=== PATIENT | male | born 1975 | race Caucasian/White ===

== ENCOUNTER 2018-03-23 13:38 | Emergency (ER) | payer MEDICARE, SELFPAY ==
[2018-03-23 13:38] VITALS: BP 153/103; PULSE 122; RESP 18; TEMP 36.6; O2SAT 100; BMI 22.0
[2018-03-23 14:40] VITALS: BP 147/99; PULSE 92; RESP 18; O2SAT 100
--- NOTE | 2018-03-23 14:46 | ED.VISSUMM ---
- ER Visit Summary Date of Service: 03/23/18 Chief Complaint: Right wrist and hand weakness History of Present Illness: The patient is a [address] of heroin and methamphetamine abuse. Patient states a month ago he fell asleep at a kitchen table. His wrist was caught awkwardly. Initially he had decreased sensation and tingling to his right forearm that has since improved over the last 4 weeks. 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 He is right-hand dominant. He has not been evaluated for this as of yet. Recently was incarcerated. Physical Examination: Middle-aged male vital signs are stable afebrile. No distress. H EENT exam unremarkable. No facial droop. Normal speech. No signs of trauma. Neck nontender. No lymphadenopathy. Lungs clear to auscultation bilaterally. Heart regular rhythm no murmur. Chest nontender. Abdomen soft nontender. Normal bowel sounds no peritoneal signs. Extremities left upper and both lower extremities are neurovascular intact. Full range of motion. Normal motor strength and sensation. His right shoulder and elbow have normal motor strength. His forearm has normal sensation. He is a strong right radial pulse. 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 His exam is consistent with a radial nerve palsy. He has a strong radial pulse. And cap refill. Test Results: None Emergency Department Course and Treatment: A radial nerve palsy. Treatment Plan: Velcro wrist splint.. Follow-up with primary care physician for further evaluation and possible physical therapy. Disposition: Discharge Impression: Acute right and radial nerve palsy History of methamphetamine and heroin abuse This note was generated with Zen99 dictation software. It may contain incorrect words, spelling, and punctuation that were not noted in review of the chart prior to signing ED Disposition - Plan for ED Patient: Chief Complaint: Upper Extremity Injury Referrals: Richard Centeno DO [Primary Care Provider] -
--- NOTE | 2018-03-23 14:49 | ED.DCSUM_ITS ---
- ER Visit Summary Date of Service: 03/23/18 Chief Complaint: Right wrist and hand weakness History of Present Illness: The patient is a [address] of heroin and methamphetamine abuse. Patient states a month ago he fell asleep at a kitchen table. His wrist was caught awkwardly. Initially he had decreased sensation and tingling to his right forearm that has since improved over the last 4 weeks. 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 He is right-hand dominant. He has not been evaluated for this as of yet. Recently was incarcerated. Physical Examination: Middle-aged male vital signs are stable afebrile. No distress. H EENT exam unremarkable. No facial droop. Normal speech. No signs of trauma. Neck nontender. No lymphadenopathy. Lungs clear to auscultation bilaterally. Heart regular rhythm no murmur. Chest nontender. Abdomen soft nontender. Normal bowel sounds no peritoneal signs. Extremities left upper and both lower extremities are neurovascular intact. Full range of motion. Normal motor strength and sensation. His right shoulder and elbow have normal motor strength. His forearm has normal sensation. He is a strong right radial pulse. 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 His exam is consistent with a radial nerve palsy. He has a strong radial pulse. And cap refill. Test Results: None Emergency Department Course and Treatment: A radial nerve palsy. Treatment Plan: Velcro wrist splint.. Follow-up with primary care physician for further evaluation and possible physical therapy. Disposition: Discharge Impression: Acute right and radial nerve palsy History of methamphetamine and heroin abuse This note was generated with Add[employer] dictation software. It may contain incorrect words, spelling, and punctuation that were not noted in review of the chart prior to signing ED Disposition - Plan for ED Patient: Chief Complaint: Upper Extremity Injury Referrals: Richard Centeno DO [Primary Care Provider] -
--- NOTE | 2018-03-23 14:49 | ED.DEP ---
ED Disposition - Plan for ED Patient: Disposition: Home or Assisted Living Chief Complaint: Upper Extremity Injury Instructions: ED Palsy Radial Nerve Referrals: Richard Centeno DO [Primary Care Provider] - As soon as possible Additional Instructions: A wrist splint as needed. Call follow-up your primary care physician.
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
== END 2018-03-23 15:02 | disposition home or self-care (01) ==
PROVIDERS: Emergency Provider Emergency Medicine; Family Provider Student in an Organized Health Care Education/Training Program; PCP Student in an Organized Health Care Education/Training Program
DX: G56.31 Lesion of radial nerve, right upper limb (principal); F15.11 Other stimulant abuse, in remission; F11.11 Opioid abuse, in remission
CPT/HCPCS: 99283

== ENCOUNTER 2018-07-13 18:51 | Emergency (ER) | payer MEDICARE, SELFPAY ==
[2018-07-13 18:54] VITALS: BP 153/87; PULSE 125; RESP 19; TEMP 38.8; O2SAT 95; BMI 20.7
[2018-07-13 18:59] VITALS: BP 153/87; PULSE 122; RESP 17; TEMP 38.8; O2SAT 95
--- NOTE | 2018-07-13 19:07 | EKG12_ITS ---
Test Reason : TACHYCARDIA Blood Pressure : / mmHG Vent. Rate : 119 BPM Atrial Rate : 119 BPM P-R Int : 114 ms QRS Dur : 090 ms QT Int : 326 ms P-R-T Axes : 068 098 058 degrees QTc Int : 458 ms Sinus tachycardia Possible Left atrial enlargement Rightward axis Borderline ECG Confirmed by ADAM GTZ ([id number]), science editor JENARO PAYAN ([id number]) on 07/19/2018 9:12:42 AM Referred By: JOSYS Confirmed By:ADAM GTZ
--- NOTE | 2018-07-13 19:32 | ED.VISSUMM ---
- ER Visit Summary Date of Service: 07/13/18 Chief Complaint: I do not feel well. History of Present Illness: The patient is a 42 M's friends and snorted 2 lines of methamphetamines. Does not believe the past out the status has been feeling well. Denies any nausea vomiting diarrhea. Mild recent, nonproductive cough. No abdominal pain or dysuria. Patient was brought in by squad. He does state that he does do IV drug abuse. Has a history of both methamphetamine and heroin abuse. He has used IV drugs in the last 2 weeks. No prior history of endocarditis. Physical Examination: Middle-aged male. Initial blood pressure 153/87 temperature 101.8 heart rate 122. HEENT exam unremarkable. Moist weeks membranes. Posterior pharynx unremarkable. Neck nontender no lymphadenopathy no meningismus. Lungs clear to auscultation bilaterally. Heart tachycardic but no murmur appreciated. Abdomen soft nontender. No peritoneal signs. Patient moving all 4 extremities. No cellulitis. No inguinal or axillary lymphadenopathy. No abscesses. No hot or swollen or tender joints. He does have track bledsoe in both antecubital areas. Back nontender. Neurologically is awake alert with no focal motor deficits. Test Results: CBC shows a white count of 11. Hemoglobin 13. No bands. Electrolytes sodium 131. Potassium 3.1. Normal gap and creatinine. Liver enzymes are normal. Lactate normal 1.1. EKG sinus tach at 119 no signs of ischemia or dysrhythmia. Chest x-ray suspicious for a medial right lower lobe early infiltrate. Discussed with the radiologist. Blood cultures x2 have been sent. Emergency Department Course and Treatment: Patient has a fever and a history of IV drug abuse. I think today he accidentally overdosed on the meth however with the fever I think he deserves a work-up for foxes infectious etiology, bacteremia or even endocarditis. But again I cannot hear a murmur at this time. He will be treated with Tylenol for his fever and IV fluids. Patient was observed in the emergency department for a lengthy period of time. Clinically looks much better currently at 2329. He is awake and alert. He and I discussed all of his test results. He will be started on Zithromax first dose given in the ER for a right lower lobe pneumonia. His current vital signs are stable. His temperature is 98.5 orally. His pulse ox is 95% on room air. He is in no distress. I did instruct him about his blood cultures of those were positive with have him return. Again I listen to his heart I could hear no murmur. I encouraged him strongly to follow-up with his primary care physician Dr. Centeno at the [facility] in the next several days. Treatment Plan: Zithromax daily for 4 days. Tylenol Motrin for fever. Follow-up with his doctor. Disposition: Discharge Impression: Acute methamphetamine overdose Acute fever secondary to acute right lower lobe pneumonia History of IV drug abuse rule out endocarditis This note was generated with [employer] dictation software. It may contain incorrect words, spelling, and punctuation that were not noted in review of the chart prior to signing ED Disposition - Plan for ED Patient: Referrals: Richard Centeno DO [Primary Care Provider] -
--- NOTE | 2018-07-13 19:35 | ED.DCSUM_ITS ---
- ER Visit Summary Date of Service: 07/13/18 Chief Complaint: I do not feel well. History of Present Illness: The patient is a 42 M's friends and snorted 2 lines of methamphetamines. Does not believe the past out the status has been feeling well. Denies any nausea vomiting diarrhea. Mild recent, nonproductive cough. No abdominal pain or dysuria. Patient was brought in by squad. He does state that he does do IV drug abuse. Has a history of both methamphetamine and heroin abuse. He has used IV drugs in the last 2 weeks. No prior history of endocarditis. Physical Examination: Middle-aged male. Initial blood pressure 153/87 temperature 101.8 heart rate 122. HEENT exam unremarkable. Moist weeks membranes. Posterior pharynx unremarkable. Neck nontender no lymphadenopathy no meningismus. Lungs clear to auscultation bilaterally. Heart tachycardic but no murmur appreciated. Abdomen soft nontender. No peritoneal signs. Patient moving all 4 extremities. No cellulitis. No inguinal or axillary lymphadenopathy. No abscesses. No hot or swollen or tender joints. He does have track bledsoe in both antecubital areas. Back nontender. Neurologically is awake alert with no focal motor deficits. Test Results: CBC shows a white count of 11. Hemoglobin 13. No bands. Electrolytes sodium 131. Potassium 3.1. Normal gap and creatinine. Liver enzymes are normal. Lactate normal 1.1. EKG sinus tach at 119 no signs of ischemia or dysrhythmia. Chest x-ray suspicious for a medial right lower lobe early infiltrate. Discussed with the radiologist. Blood cultures x2 have been sent. Emergency Department Course and Treatment: Patient has a fever and a history of IV drug abuse. I think today he accidentally overdosed on the meth however with the fever I think he deserves a work-up for foxes infectious etiology, bacteremia or even endocarditis. But again I cannot hear a murmur at this time. He will be treated with Tylenol for his fever and IV fluids. Patient was observed in the emergency department for a lengthy period of time. Clinically looks much better currently at 2329. He is awake and alert. He and I discussed all of his test results. He will be started on Zithromax first dose given in the ER for a right lower lobe pneumonia. His current vital signs are stable. His temperature is 98.5 orally. His pulse ox is 95% on room air. He is in no distress. I did instruct him about his blood cultures of those were positive with have him return. Again I listen to his heart I could hear no murmur. I encouraged him strongly to follow-up with his primary care physician Dr. Centeno at the [facility] in the next several days. Treatment Plan: Zithromax daily for 4 days. Tylenol Motrin for fever. Follow- up with his doctor. Disposition: Discharge Impression: Acute methamphetamine overdose Acute fever secondary to acute right lower lobe pneumonia History of IV drug abuse rule out endocarditis This note was generated with [employer] dictation software. It may contain incorrect words, spelling, and punctuation that were not noted in review of the chart prior to signing ED Disposition - Plan for ED Patient: Referrals: Richard Centeno DO [Primary Care Provider] -
[2018-07-13] MEDS: 0.9% Normal Saline 1,000 ML 999 ML IV (20:03)
[2018-07-13 20:05] LABS: Absolute Lymphocyte Count 0.72 X10^3/ul (0.83-4.51); Absolute Neutrophil Count 9.9 X10^3/uL (2.0-7.7); Basophil# 0.01 X10^3/uL; Basophil% 0.1 % (0-1); Hematocrit 40.8 % (40-54); Hemoglobin 13.8 g/dl (13.0-16.5); Lymphocyte # 0.72 X10^3/ul (4.0); Lymphocyte % 6.3 % (19-41); Mean Corp Hgb Conc 33.8 g/gl (32-36); Mean Corpuscular Hgb 28.9 pg (27.0-32.0); Mean Corpuscular Volume 85.4 fL (80-94); Mean Platelet Vol. 11.4 fl (6.2-12.0); Monocyte# 0.75 X10^3/uL; Monocyte% 6.6 % (0-10); Neutrophil # 9.94 X10^3/uL (2.7-7.7); Neutrophil % 86.8 % (47-70); Platelet Count 247 K/mm3 (150-450); RBC Distribution Width CV 13.7 % (11.6-14.6); RBC Distribution Width SD 42.4 fl (35.1-43.9); Red Blood Count 4.78 M/mm3 (4.6-6.2); White Blood Count 11.4 K/mm3 (4.4-11.0)
[2018-07-13 20:08] LABS: POSITIVE COUNT NO; POSITIVE DIFFERENTIAL NO; POSITIVE MORPHOLOGY NO
--- NOTE | 2018-07-13 20:10 | RAD_ITS ---
STUDY: X-RAY CHEST REASON FOR EXAM: Male, 42 years old. Fever TECHNIQUE: Frontal and lateral views COMPARISON: None. FINDINGS: The lungs are clear and expanded. There is no demonstrated pleural abnormality. Normal size heart. Normal mediastinum and shaun. Normal visualized pulmonary arteries. Normal visualized aortic arch and descending thoracic aorta. Normal visualized thoracic spine. Old left sixth rib fracture. There is no demonstrated abnormality of the visualized soft tissue structures of the upper abdomen. RAD/Chest PA and Lateral IMPRESSION: No acute pulmonary pathology of the chest. Electronically Signed: Kedar Gallegos DO at 20:49 EDT Tel [phone], Service support ,
[2018-07-13] MEDS: Acetaminophen 500 MG Tablet 1000 MG PO (20:13)
[2018-07-13 20:25] LABS: AST(SGOT) 35 U/L (15-37); Alanine Aminotransfer ALT/SGPT 21 U/L (16-61); Albumin, Serum 3.5 g/dL (3.2-5.0); Alkaline Phosphatase 52 U/L (45-117); Anion Gap 8 (5-15); BUN 14 mg/dL (7-18); Bilirubin, Direct 0.22 mg/dL (0.00-0.30); Calcium,Total 8.4 mg/dL (8.5-10.1); Chloride 97 mmol/L (98-107); EST Glomerular Filtration Rate 87 mL/min (>60); Est Glom Filt Rate - Afr Amer 105 mL/min (>60); Globulin 3.2 g/dL (2.2-4.2); Glucose 111 mg/dL (74-106); Potassium 3.1 mmol/L (3.5-5.1); Protein, Total 6.7 g/dL (6.4-8.2); Sodium Level 131 mmol/L (136-145)
[2018-07-13 20:30] LABS: Lactic Acid 1.1 mmol/L (0.4-2.0)
[2018-07-13 21:33] VITALS: BP 112/66; PULSE 101; RESP 16
--- NOTE | 2018-07-13 23:39 | ED.DEP ---
ED Disposition - Plan for ED Patient: Disposition: Home or Assisted Living Instructions: ED Pneumonia Adult, ED Drug Abuse General Prescriptions: Azithromycin [Zithromax] 250 mg PO DAILY #4 tab Referrals: Richard Centeno DO [Primary Care Provider] - 3-5 Days Additional Instructions: Follow-up with your doctor in 3 to 5 days to ensure you are improving. Return to the ER if you are feeling worse. Plenty of fluids and rest. Alternate Tylenol Motrin for fever. He will be treated with the antibiotic Zithromax 1 pill a day for the next 4 days starting tomorrow for a pneumonia. We did send blood cultures primarily to make sure you do not have an endocarditis which is a an infection in your heart and blood stream due to the IV drug abuse.
[2018-07-13 23:47] VITALS: BP 120/79; PULSE 80; RESP 18; O2SAT 96
[2018-07-13 23:50] VITALS: BP 120/79; PULSE 80; RESP 18; O2SAT 96
[2018-07-13] MEDS: Azithromycin 250 MG Tablet 500 MG PO (23:50)
== END 2018-07-14 00:06 | disposition home or self-care (01) ==
PROVIDERS: Emergency Provider Emergency Medicine; Family Provider Student in an Organized Health Care Education/Training Program; PCP Student in an Organized Health Care Education/Training Program
DX: T43.621A Poisoning by amphetamines, accidental (unintentional), initial encounter (principal); Y92.9 Unspecified place or not applicable; R50.9 Fever, unspecified; J18.9 Pneumonia, unspecified organism; F11.10 Opioid abuse, uncomplicated; F15.10 Other stimulant abuse, uncomplicated; Z72.0 Tobacco use
CPT/HCPCS: 36415; 71046; 80048; 80076; 83605; 85025; 87040; 93005; 96360; 96361; 99285; J7030; A4216